=== PATIENT | female | born 1975 | race Hispanic/Latino ===

== ENCOUNTER → 2017-11-09 | Outpatient (CLI) | payer BC | END | disposition home or self-care (01) | LOC: RAH 13:19 | DX: Z12.31 Encounter for screening mammogram for malignant neoplasm of breast (principal) | CPT/HCPCS: 77067 ==

== ENCOUNTER → 2018-11-10 | Outpatient (CLI) | payer BC | END | disposition home or self-care (01) | LOC: RAH 07:48 | DX: Z12.31 Encounter for screening mammogram for malignant neoplasm of breast (principal) | CPT/HCPCS: 77067 ==

== ENCOUNTER → 2019-11-28 | Outpatient (CLI) | payer BC | END | disposition home or self-care (01) | LOC: RAH 08:01 | PROVIDERS: ATTEND Internal Medicine | DX: Z12.31 Encounter for screening mammogram for malignant neoplasm of breast (principal) | CPT/HCPCS: 77067 ==

== ENCOUNTER → 2023-03-08 | Outpatient (CLI) | payer BC | END | disposition home or self-care (01) | LOC: RAH 11:24 | PROVIDERS: ATTEND Nurse Practitioner Family | DX: Z12.31 Encounter for screening mammogram for malignant neoplasm of breast (principal) | CPT/HCPCS: 77067 ==

== ENCOUNTER → 2024-05-11 | Outpatient (CLI) | payer BC | END | disposition home or self-care (01) | LOC: RAH 08:03 | PROVIDERS: ATTEND Family Medicine | DX: Z12.31 Encounter for screening mammogram for malignant neoplasm of breast (principal); R92.333 Mammographic heterogeneous density, bilateral breasts | CPT/HCPCS: 77067 ==

== ENCOUNTER → 2025-04-26 | Outpatient (CLI) | payer BC ==
--- NOTE | 2025-04-26 16:28 | HMCIMG ---
US TRANSVAGINAL NON-OB HISTORY: Hormone replacement therapy COMPARISON: None TECHNIQUE: Endovaginal pelvic ultrasound study was performed. FINDINGS: The uterus measures 6.9 x 2.9 x 4.2 cm. The right ovary measures 1.2 x 1.2 x 1 cm. Flow is seen bilaterally. The left ovary is not seen. Endometrial thickness is 6 mm. No free fluid is seen in the cul-de-sac. IMPRESSION: 1. No adnexal mass is seen.
== END | disposition home or self-care (01) ==
LOC: RAH 15:26
PROVIDERS: ATTEND Obstetrics & Gynecology
DX: Z79.890 Hormone replacement therapy (principal)
CPT/HCPCS: 76830